=== PATIENT | male | born 1940 | race Caucasian/White ===

== ENCOUNTER 2022-12-30 07:47 | Inpatient (IN) | payer MEDICARE ==
[~2022-12-30] VITALS: Ht 177.8 cm; Wt 73.5 kg
[2022-12-30] MEDS ORDERED: PANTOPRAZOLE 40 MG VIAL ONE (08:29)
[2022-12-30] MEDS ORDERED: IV NS 0.9% 1,000 ML BAG IV ONE ×2 (08:30→10:30)
[2022-12-30] MEDS ORDERED: PANTOPRAZOLE 40 MG VIAL IV ONE (08:30)
[2022-12-30 09:23] LABS: BASOPHILS % (AUTO) 0.1 % (0.0-2.0); EOSINOPHILS % (AUTO) 0.1 % (0.0-6.0); HEMATOCRIT 27 % (39-51); HEMOGLOBIN 8.5 g/dL (13.5-17.5); LYMPHOCYTES # (AUTO) 0.9 K/uL (0.8-4.8); LYMPHOCYTES % (AUTO) 4.4 % (20.0-44.0); MEAN CORPUSCULAR HEMOGLOBIN 30 PG (26.0-33.0); MEAN CORPUSCULAR HGB CONC 32 g/dl (31.0-36.0); MEAN CORPUSCULAR VOLUME 93 fL (80-96); MONOCYTES % (AUTO) 10.2 % (2.0-12.0); NEUTROPHILS # (AUTO) 16.8 K/uL (1.8-8.9); NEUTROPHILS % (AUTO) 85.2 % (43.0-81.0); PLATELET COUNT (AUTO) 157 K/uL (150-450); RED BLOOD CELL COUNT(AUTO) 2.88 MIL/uL (4.5-6.0); WHITE BLOOD COUNT (AUTO) 19.7 K/uL (4.3-11.0)
[2022-12-30 09:30] LABS: INR 1.18 (0.91-1.10); PARTIAL THROMBOPLASTIN TIME 20.9 SEC (24.3-34.3); PROTHROMBIN TIME 12.4 SECS (9.2-11.1)
[2022-12-30 09:38] LABS: ALANINE AMINOTRANSFERASE 18 U/L (12-78); ALBUMIN 3.1 g/dL (3.4-5.0); ALKALINE PHOSPHATASE 35 U/L (46-116); ASPARTATE AMINOTRANSFERASE 10 U/L (15-37); BILIRUBIN,DIRECT 0.2 mg/dL (0.0-0.2); BILIRUBIN,TOTAL 0.7 mg/dL (0.2-1.0); CALCIUM, SERUM 9.5 mg/dL (8.5-10.1); CARBON DIOXIDE 24 mmol/L (21-32); CHLORIDE 106 mmol/L (98-107); CREATININE 1.2 mg/dL (0.6-1.3); GLUCOSE 216 mg/dL (74-106); LIPASE 40 U/L (16-77); POTASSIUM 4.7 mmol/L (3.5-5.1); SODIUM SERUM 138 mmol/L (136-145)
[2022-12-30 09:48] LABS: LACTIC ACID 1.7 mmol/L (0.4-2.0)
[2022-12-30] MEDS ORDERED: METF-440 PO (09:55)
[2022-12-30] MEDS ORDERED: APIX5TAB PO (09:55)
[2022-12-30] MEDS ORDERED: ROSU40TA PO (09:55)
[2022-12-30] MEDS ORDERED: DAPA10TA PO (09:55)
[2022-12-30] MEDS ORDERED: ASPI-1169 PO (09:55)
[2022-12-30] MEDS ORDERED: LATA7.5D EACHEYE (09:55)
[2022-12-30] MEDS ORDERED: TOCI80VI (09:55)
[2022-12-30] MEDS ORDERED: MYCO500T PO (09:55)
[2022-12-30] MEDS ORDERED: PRED5TAB PO (09:55)
[2022-12-30] MEDS ORDERED: TIMO5DRO31 EACHEYE (09:55)
[2022-12-30] MEDS ORDERED: EDARBYCLOR PO (09:55)
[2022-12-30] MEDS ORDERED: AZEL137S7 NS (09:55)
[2022-12-30 09:56] LABS: UREA NITROGEN, BLOOD 84 mg/dL (7-18)
[2022-12-30] MEDS ORDERED: ONDANSETRON HCL/PF 4 MG/2 ML VIAL IVP ONE (11:00)
[2022-12-30] MEDS ORDERED: MORPHINE SULFATE INJ 2 MG/ML DISP.SYRIN IV ONE (11:00)
[2022-12-30 11:30] VITALS: BP 117/55; TEMP 99.1; O2SAT 97
[2022-12-30] MEDS ORDERED: IV NS 0.9% 1,000 ML IV SCH (12:00)
[2022-12-30] MEDS ORDERED: hydrALAZINE HCL IV 20 MG VIAL IV PRN (12:00)
[2022-12-30] MEDS ORDERED: ONDANSETRON HCL/PF 4 MG/2 ML VIAL IVP PRN (12:00)
[2022-12-30] MEDS ORDERED: ACETAMINOPHEN 325 MG TABLET PO PRN (12:00)
[2022-12-30 14:47] LABS: HEMOGLOBIN 7.5 g/dL (13.5-17.5)
[2022-12-30 16:00] VITALS: BP 99/48; TEMP 98.2; O2SAT 98
[2022-12-30] MEDS: MYCOPHENOLATE MOFETIL 250 MG CAPSULE PO SCH (17:00)
[2022-12-30] MEDS: PANTOPRAZOLE 40 MG VIAL IV SCH (17:26)
[2022-12-30] MEDS: MORPHINE SULFATE INJ 2 MG/ML DISP.SYRIN IV PRN (18:33)
[2022-12-30 21:06] LABS: OCCULT BLOOD STOOL POSITIVE (NEGATIVE)
[2022-12-30 21:35] VITALS: BP 108/46; TEMP 98.2; O2SAT 95
[2022-12-30] MEDS ORDERED: predniSONE 5 MG TABLET ONE (22:10)
[2022-12-30] MEDS ORDERED: predniSONE 5 MG TABLET PO ONE (22:30)
[2022-12-31] VITALS (20 sets, daily range): BP systolic 81–133; BP diastolic 45–95; TEMP 97.3–98.6; O2SAT 95–100
[2022-12-31] MEDS: IV NS 0.9% 1,000 ML IV PRN ×2 (05:07→23:54)
[2022-12-31 05:51] LABS: BASOPHILS % (AUTO) 0.1 % (0.0-2.0); HEMATOCRIT 21 % (39-51); LYMPHOCYTES # (AUTO) 1.9 K/uL (0.8-4.8); LYMPHOCYTES % (AUTO) 9.7 % (20.0-44.0); MEAN CORPUSCULAR HEMOGLOBIN 31 PG (26.0-33.0); MEAN CORPUSCULAR HGB CONC 32 g/dl (31.0-36.0); MEAN CORPUSCULAR VOLUME 95 fL (80-96); MONOCYTES # (AUTO) 1.2 K/uL (0.1-1.30); MONOCYTES % (AUTO) 6.1 % (2.0-12.0); NEUTROPHILS # (AUTO) 16.2 K/uL (1.8-8.9); NEUTROPHILS % (AUTO) 84.1 % (43.0-81.0); PLATELET COUNT (AUTO) 121 K/uL (150-450); RED CELL DISTRIBUTION WIDTH 14.4 % (11.5-15.0); WHITE BLOOD COUNT (AUTO) 19.3 K/uL (4.3-11.0)
[2022-12-31 06:00] LABS: ALBUMIN 2.5 g/dL (3.4-5.0); BILIRUBIN,TOTAL 0.9 mg/dL (0.2-1.0); CALCIUM, SERUM 8.1 mg/dL (8.5-10.1); CREATININE 1.2 mg/dL (0.6-1.3); MAGNESIUM 2.1 mg/dL (1.8-2.4); PHOSPHORUS 3.8 mg/dL (2.5-4.9); POTASSIUM 4.3 mmol/L (3.5-5.1); TOTAL PROTEIN, SERUM 4.3 g/dL (6.4-8.2)
[2022-12-31 06:22] LABS: HEMOGLOBIN 6.7 g/dL (13.5-17.5)
[2022-12-31] MEDS: ATORVASTATIN 40 MG TABLET PO SCH (08:29)
[2022-12-31] MEDS: PANTOPRAZOLE 40 MG VIAL IV SCH ×2 (08:29→16:20)
[2022-12-31] MEDS: MYCOPHENOLATE MOFETIL 250 MG CAPSULE PO SCH ×2 (08:29→16:20)
[2022-12-31] MEDS: TIMOLOL 0.25% SOL OPHTH 10 ML BOTTLE EACHEYE SCH (08:45)
[2022-12-31 09:57] LABS: ANISOCYTOSIS 1+; LYMPHOCYTES % (MANUAL) 8 % (16-48); MONOCYTES % (MANUAL) 6 % (0-11.0); NEUTROPHILS % (MANUAL) 86 (42-76); OVALOCYTES 1+; PLATELET ESTIMATE DECREASED
[2022-12-31 12:13] LABS: APPEARANCE,URINE CLEAR (CLEAR); BILIRUBIN,URINE NEGATIVE (NEGATIVE); BLOOD, URINE NEGATIVE Ery/uL (NEGATIVE); COLOR,URINE YELLOW (YELLOW); KETONES,URINE NEGATIVE (NEGATIVE); LEUKOCYTE ESTERASE ,URINE NEGATIVE (NEGATIVE); NITRITE, URINE NEGATIVE (NEGATIVE); PH,URINE 5.5 (5.0-8.0); PROTEIN,URINE NEGATIVE (NEGATIVE); UGLUCOSE 3+ mg/dL (NEGATIVE); UROBILINOGEN,URINE 0.2 EU/dL (0.2)
[2022-12-31 12:44] LABS: HEMOGLOBIN 5.8 g/dL (13.5-17.5)
[2022-12-31] MEDS ORDERED: LORATADINE 10 MG TABLET PO ONE (13:00)
[2022-12-31] MEDS ORDERED: diphenhydrAMINE HCL 50 MG/ML VIAL IV ONE ×2 (13:00)
[2022-12-31] MEDS ORDERED: ACETAMINOPHEN 325 MG TABLET PO ONE (13:00)
[2022-12-31 13:57] LABS: RBC,URINE 0-2 /HPF (0-2)
[2022-12-31 13:58] LABS: ADD URINE CULTURE NO; BACTERIA,URINE Rare /HPF (None Seen); SQUAMOUS EPITHELIAL CELL,UR Rare /HPF (None Seen); WBC,URINE 0-2 /HPF (0-3)
[2022-12-31 15:34] LABS: EOSINOPHIL,URINE None Seen
[2022-12-31 15:55] LABS: CREATININE, URINE 28.5 MG/DL (30.0-125.0); URINE TOTAL PROTEIN 8.1 mg/dL (0-11.9)
[2022-12-31] MEDS ORDERED: LORAZEPAM INJ 2 MG/ML VIAL IV ONE (16:00)
[2022-12-31] MEDS ORDERED: ANESTHESIA TRAY IN PYXIS 1 EA TRAY MC ONE (16:55)
[2022-12-31] MEDS ORDERED: METOCLOPRAMIDE HCL 10 MG/2 ML VIAL ONE (17:50)
[2022-12-31] MEDS ORDERED: EPINEPHRINE (1:10,000) SYRINGE 1 MG/10 ML DISP.SYRIN ONE (18:26)
[2022-12-31] MEDS ORDERED: PANTOPRAZOLE 80 MG in IV NS 0.9% 100 ML IV ONE (19:30)
[2022-12-31 21:12] LABS: HEMOGLOBIN 7.3 g/dL (13.5-17.5)
[2022-12-31] MEDS: PANTOPRAZOLE 80 MG in IV NS 0.9% 500 ML IV PRN (21:13)
[2023-01-01] VITALS (97 sets, daily range): BP systolic 33–145; BP diastolic 18–126; TEMP 96.8–100; O2SAT 90–100
[2023-01-01 04:58] LABS: HEMATOCRIT 22 % (39-51); LYMPHOCYTES # (AUTO) 2.4 K/uL (0.8-4.8); LYMPHOCYTES % (AUTO) 9.2 % (20.0-44.0); MEAN CORPUSCULAR HEMOGLOBIN 31 PG (26.0-33.0); MEAN CORPUSCULAR HGB CONC 33 g/dl (31.0-36.0); MEAN CORPUSCULAR VOLUME 95 fL (80-96); MONOCYTES # (AUTO) 1.2 K/uL (0.1-1.30); MONOCYTES % (AUTO) 4.6 % (2.0-12.0); NEUTROPHILS # (AUTO) 22.4 K/uL (1.8-8.9); NEUTROPHILS % (AUTO) 86.2 % (43.0-81.0); PLATELET COUNT (AUTO) 106 K/uL (150-450); RED BLOOD CELL COUNT(AUTO) 2.28 MIL/uL (4.5-6.0)
[2023-01-01 05:43] LABS: ALANINE AMINOTRANSFERASE 14 U/L (12-78); ALBUMIN 2.1 g/dL (3.4-5.0); ALKALINE PHOSPHATASE 32 U/L (46-116); ASPARTATE AMINOTRANSFERASE 9 U/L (15-37); BILIRUBIN,TOTAL 0.8 mg/dL (0.2-1.0); CALCIUM, SERUM 7.5 mg/dL (8.5-10.1); CARBON DIOXIDE 16 mmol/L (21-32); CHLORIDE 113 mmol/L (98-107); CREATININE 1.5 mg/dL (0.6-1.3); GLUCOSE 324 mg/dL (74-106); MAGNESIUM 1.8 mg/dL (1.8-2.4); PHOSPHORUS 3.4 mg/dL (2.5-4.9); POTASSIUM 4.3 mmol/L (3.5-5.1); SODIUM SERUM 141 mmol/L (136-145); TOTAL PROTEIN, SERUM 3.5 g/dL (6.4-8.2)
[2023-01-01 05:45] LABS: UREA NITROGEN, BLOOD 85 mg/dL (7-18)
[2023-01-01 05:47] LABS: CREATINE KINASE, TOTAL 77 U/L (39-308)
[2023-01-01] MEDS: PANTOPRAZOLE 80 MG in IV NS 0.9% 500 ML IV PRN ×2 (06:03→17:42)
[2023-01-01] MEDS: MORPHINE SULFATE INJ 2 MG/ML DISP.SYRIN IV PRN (07:58)
[2023-01-01 08:09] LABS: BASOPHILS % (AUTO) 0.1 % (0.0-2.0); HEMATOCRIT 22 % (39-51); LYMPHOCYTES # (AUTO) 3.4 K/uL (0.8-4.8); LYMPHOCYTES % (AUTO) 11.1 % (20.0-44.0); MEAN CORPUSCULAR HEMOGLOBIN 30 PG (26.0-33.0); MEAN CORPUSCULAR HGB CONC 30 g/dl (31.0-36.0); MEAN CORPUSCULAR VOLUME 101 fL (80-96); MONOCYTES % (AUTO) 6.6 % (2.0-12.0); NEUTROPHILS % (AUTO) 82.2 % (43.0-81.0); PLATELET COUNT (AUTO) 97 K/uL (150-450); RED CELL DISTRIBUTION WIDTH 15.2 % (11.5-15.0)
[2023-01-01 08:15] LABS: HEMOGLOBIN 6.7 g/dL (13.5-17.5); WHITE BLOOD COUNT (AUTO) 30.4 K/uL (4.3-11.0)
[2023-01-01] MEDS ORDERED: HYDROCHLOROTHIAZIDE 25 MG TABLET PO SCH (09:00)
[2023-01-01] MEDS: MYCOPHENOLATE MOFETIL 250 MG CAPSULE PO SCH ×2 (09:00→17:00)
[2023-01-01] MEDS ORDERED: LOSARTAN POTASSIUM 25 MG TABLET PO SCH (09:00)
[2023-01-01] MEDS ORDERED: predniSONE 5 MG TABLET PO SCH (09:00)
[2023-01-01] MEDS: ATORVASTATIN 40 MG TABLET PO SCH (09:00)
[2023-01-01] MEDS: TIMOLOL 0.25% SOL OPHTH 10 ML BOTTLE EACHEYE SCH (10:00)
[2023-01-01] MEDS: NOREPINEPHRINE 8 MG in IV NS 0.9% 242 ML IV PRN (10:21)
[2023-01-01] MEDS: IV NS 0.9% 1,000 ML IV PRN ×2 (10:30→22:41)
[2023-01-01] MEDS ORDERED: PROTHROMBIN COMPLEX CONCENTR IV ONE (11:00)
[2023-01-01] MEDS ORDERED: WATER FOR INJECTION STERILE IV ONE (11:00)
[2023-01-01] MEDS ORDERED: ANESTHESIA TRAY IN PYXIS 1 EA TRAY MC ONE ×2 (11:51→14:24)
[2023-01-01] MEDS ORDERED: VASOPRESSIN INJ 20 UNIT/ML VIAL ONE (11:52)
[2023-01-01] MEDS ORDERED: MIDAZOLAM HCL 2 MG/2ML VIAL ONE (11:53)
[2023-01-01] MEDS ORDERED: ROCURONIUM BROMIDE 50 MG/5 ML ONE (11:56)
[2023-01-01] MEDS ORDERED: EPINEPHRINE (1:1000) 1 MG/ML AMPUL ONE (11:56)
[2023-01-01 11:58] LABS: BASOPHILS # (AUTO) 0.1 K/uL (0.0-0.2); BASOPHILS % (AUTO) 0.2 % (0.0-2.0); EOSINOPHILS # (AUTO) 0.2 K/uL (0.0-0.7); EOSINOPHILS % (AUTO) 0.5 % (0.0-6.0); HEMATOCRIT 36 % (39-51); HEMOGLOBIN 10.3 g/dL (13.5-17.5); LYMPHOCYTES # (AUTO) 5.7 K/uL (0.8-4.8); LYMPHOCYTES % (AUTO) 11.4 % (20.0-44.0); MEAN CORPUSCULAR HEMOGLOBIN 31 PG (26.0-33.0); MEAN CORPUSCULAR HGB CONC 29 g/dl (31.0-36.0); MEAN CORPUSCULAR VOLUME 107 fL (80-96); MONOCYTES # (AUTO) 4.2 K/uL (0.1-1.30); MONOCYTES % (AUTO) 8.4 % (2.0-12.0); NEUTROPHILS # (AUTO) 39.6 K/uL (1.8-8.9); NEUTROPHILS % (AUTO) 79.5 % (43.0-81.0); PLATELET COUNT (AUTO) 85 K/uL (150-450); RED BLOOD CELL COUNT(AUTO) 3.35 MIL/uL (4.5-6.0); RED CELL DISTRIBUTION WIDTH 15.2 % (11.5-15.0)
[2023-01-01] MEDS ORDERED: PHENYLEPHRINE 50 MG in IV NS 0.9% 245 ML IV PRN (12:00)
[2023-01-01] MEDS: MEROPENEM 1 G in IV NS 0.9% 100 ML IV SCH (12:00)
[2023-01-01] MEDS ORDERED: SODIUM BICARBONATE SYR 50 MEQ/50 ML DISP.SYRIN IV ONE (12:00)
[2023-01-01 12:01] LABS: WHITE BLOOD COUNT (AUTO) 49.8 K/uL (4.3-11.0)
[2023-01-01] MEDS ORDERED: AZTREONAM 1 G in IV NS 0.9% 100 ML IV SCH (13:00)
[2023-01-01 13:07] LABS: ABG BASE EXCESS -22.7 mmol/L; ABG OXYGEN SATURATION 99.1 % (92.0-98.5); ABG PCO2 28.2 mmHg (35.0-45.0); ABG PH 7.014 (7.350-7.450); ABG PO2 395.1 mmHg (75.0-100.0); ABG TOTAL HEMOGLOBIN 10.9 G/dL (13.5-18.0); AaDO2 289.7 mmHg; COHb 0.3 % (0.5-1.5); MetHb 0.6 % (0.0-1.5); O2Hb 98.2 % (94.0-97.0); PEEP,BG 5 cm H2O; SITE, ABG Right Radial; VT, ABG 500 mL
[2023-01-01 13:08] LABS: ANISOCYTOSIS 1+; BASOPHILS % (MANUAL) 0 % (0.0-2.0); EOSINOPHILS % (MANUAL) 0 % (0-4); LYMPHOCYTES % (MANUAL) 10 % (16-48); MONOCYTES % (MANUAL) 6 % (0-11.0); NEUTROPHILS % (MANUAL) 84 (42-76); PLATELET ESTIMATE DECREASED
[2023-01-01] MEDS ORDERED: SUCCINYLCHOLINE CHLORIDE 20 MG/ML VIAL IV ONE (13:20)
[2023-01-01] MEDS ORDERED: ETOMIDATE 2 MG/ML VIAL IV ONE (13:20)
[2023-01-01] MEDS: VASOPRESSIN INJ 40 UNIT in IV NS 0.9% 38 ML IV PRN (15:09)
[2023-01-01] MEDS: VANCOMYCIN 1 GM in IV D5W 250 ML IV SCH (15:14)
[2023-01-01] MEDS: PROPOFOL 100 ML IV PRN ×2 (16:40→22:00)
[2023-01-01 16:52] LABS: RHEUMATOID FACTOR SCREEN NEGATIVE (NEGATIVE)
[2023-01-01] MEDS: SUCRALFATE 1 G/10 ML UDC GT SCH (18:00)
[2023-01-01 18:09] LABS: BASOPHILS # (AUTO) 0.1 K/uL (0.0-0.2); BASOPHILS % (AUTO) 0.5 % (0.0-2.0); EOSINOPHILS % (AUTO) 0.2 % (0.0-6.0); HEMATOCRIT 25 % (39-51); HEMOGLOBIN 8.2 g/dL (13.5-17.5); LYMPHOCYTES # (AUTO) 1.4 K/uL (0.8-4.8); LYMPHOCYTES % (AUTO) 6.4 % (20.0-44.0); MEAN CORPUSCULAR HEMOGLOBIN 32 PG (26.0-33.0); MEAN CORPUSCULAR HGB CONC 34 g/dl (31.0-36.0); MEAN CORPUSCULAR VOLUME 94 fL (80-96); MONOCYTES % (AUTO) 4.3 % (2.0-12.0); NEUTROPHILS # (AUTO) 19.7 K/uL (1.8-8.9); NEUTROPHILS % (AUTO) 88.6 % (43.0-81.0); PLATELET COUNT (AUTO) 52 K/uL (150-450); RED CELL DISTRIBUTION WIDTH 13.4 % (11.5-15.0); WHITE BLOOD COUNT (AUTO) 22.3 K/uL (4.3-11.0)
[2023-01-01] MEDS: PHENYLEPHRINE 100 MG in IV NS 0.9% 240 ML IV PRN (20:16)
[2023-01-01 20:32] LABS: BAND % (MANUAL) 14 % (0.0-5.0); EOSINOPHILS % (MANUAL) 1 % (0-4); LYMPHOCYTES % (MANUAL) 16 % (16-48); MONOCYTES % (MANUAL) 1 % (0-11.0); MYELOCYTES % 2 % (0-0); NEUTROPHILS % (MANUAL) 66 (42-76)
[2023-01-01 20:34] LABS: ANISOCYTOSIS 2+; PLATELET ESTIMATE DECRE
[2023-01-01 23:27] LABS: HEMOGLOBIN 7.4 g/dL (13.5-17.5)
[2023-01-02] VITALS (85 sets, daily range): BP systolic 35–170; BP diastolic 14–134; TEMP 95.3–100; O2SAT 92–100
[2023-01-02] MEDS: MEROPENEM 1 G in IV NS 0.9% 100 ML IV SCH ×2 (00:22→11:01)
[2023-01-02 01:09] LABS: MEAN CORPUSCULAR HEMOGLOBIN 30 PG (26.0-33.0); MEAN CORPUSCULAR VOLUME 101 fL (80-96)
[2023-01-02 01:20] LABS: BASOPHILS % (AUTO) 0.1 % (0.0-2.0); EOSINOPHILS # (AUTO) 0.1 K/uL (0.0-0.7); EOSINOPHILS % (AUTO) 0.1 % (0.0-6.0); HEMATOCRIT 26 % (39-51); HEMOGLOBIN 7.8 g/dL (13.5-17.5); LYMPHOCYTES # (AUTO) 2.8 K/uL (0.8-4.8); LYMPHOCYTES % (AUTO) 6.9 % (20.0-44.0); MEAN CORPUSCULAR HGB CONC 30 g/dl (31.0-36.0); MONOCYTES # (AUTO) 4.2 K/uL (0.1-1.30); MONOCYTES % (AUTO) 10.4 % (2.0-12.0); NEUTROPHILS # (AUTO) 33.5 K/uL (1.8-8.9); NEUTROPHILS % (AUTO) 82.5 % (43.0-81.0); PLATELET COUNT (AUTO) 56 K/uL (150-450); RED BLOOD CELL COUNT(AUTO) 2.56 MIL/uL (4.5-6.0); RED CELL DISTRIBUTION WIDTH 15.2 % (11.5-15.0)
[2023-01-02 01:38] LABS: WHITE BLOOD COUNT (AUTO) 40.7 K/uL (4.3-11.0)
[2023-01-02] MEDS: PHENYLEPHRINE 100 MG in IV NS 0.9% 240 ML IV PRN ×4 (01:52→22:05)
[2023-01-02 02:08] LABS: ABG OXYGEN SATURATION 99.2 % (92.0-98.5); ABG PCO2 25.5 mmHg (35.0-45.0); ABG PH 7.244 (7.350-7.450); ABG PO2 361.8 mmHg (75.0-100.0); ABG TOTAL HEMOGLOBIN 10.7 G/dL (13.5-18.0); AaDO2 325.7 mmHg; COHb 0.1 % (0.5-1.5); MetHb 0.2 % (0.0-1.5); O2Hb 98.9 % (94.0-97.0); SITE, ABG Right Radial
[2023-01-02] MEDS: PROPOFOL 100 ML IV PRN (03:14)
[2023-01-02] MEDS: PANTOPRAZOLE 80 MG in IV NS 0.9% 500 ML IV PRN ×3 (03:16→23:50)
[2023-01-02 03:29] LABS: BAND % (MANUAL) 3 % (0.0-5.0); BASOPHILS % (MANUAL) 0 % (0.0-2.0); EOSINOPHILS % (MANUAL) 0 % (0-4); LYMPHOCYTES % (MANUAL) 5 % (16-48); MONOCYTES % (MANUAL) 8 % (0-11.0); NEUTROPHILS % (MANUAL) 84 (42-76)
[2023-01-02 03:30] LABS: PLATELET ESTIMATE DECREASED
[2023-01-02 03:31] LABS: ANISOCYTOSIS 1+
[2023-01-02] MEDS: SUCRALFATE 1 G/10 ML UDC GT SCH ×5 (05:36→23:59)
[2023-01-02 07:06] LABS: PTH, INTACT 55 pg/mL (15-65)
[2023-01-02 07:15] LABS: BASOPHILS # (AUTO) 0.1 K/uL (0.0-0.2); BASOPHILS % (AUTO) 0.3 % (0.0-2.0); EOSINOPHILS # (AUTO) 0.1 K/uL (0.0-0.7); EOSINOPHILS % (AUTO) 0.2 % (0.0-6.0); HEMATOCRIT 26 % (39-51); HEMOGLOBIN 7.9 g/dL (13.5-17.5); LYMPHOCYTES # (AUTO) 2.4 K/uL (0.8-4.8); LYMPHOCYTES % (AUTO) 8.8 % (20.0-44.0); MEAN CORPUSCULAR HEMOGLOBIN 32 PG (26.0-33.0); MEAN CORPUSCULAR HGB CONC 31 g/dl (31.0-36.0); MEAN CORPUSCULAR VOLUME 104 fL (80-96); MONOCYTES # (AUTO) 0.6 K/uL (0.1-1.30); MONOCYTES % (AUTO) 2.2 % (2.0-12.0); NEUTROPHILS # (AUTO) 24.2 K/uL (1.8-8.9); NEUTROPHILS % (AUTO) 88.5 % (43.0-81.0); RED BLOOD CELL COUNT(AUTO) 2.47 MIL/uL (4.5-6.0); RED CELL DISTRIBUTION WIDTH 15.5 % (11.5-15.0); WHITE BLOOD COUNT (AUTO) 27.4 K/uL (4.3-11.0)
[2023-01-02 07:24] LABS: PLATELET COUNT (AUTO) 43 K/uL (150-450)
[2023-01-02 08:07] LABS: FOLIC ACID > 20.0 ng/mL (>3.0); IMMUNOGLOBULIN A, SERUM 73 mg/dL (61-437); IMMUNOGLOBULIN G, SERUM 407 mg/dL (603-1613); IMMUNOGLOBULIN M, SERUM 48 mg/dL (15-143)
[2023-01-02 08:16] LABS: FERRITIN 4899 ng/mL (8-388)
[2023-01-02] MEDS: NOREPINEPHRINE 8 MG in IV NS 0.9% 242 ML IV PRN ×6 (08:26→23:50)
[2023-01-02 08:46] LABS: IRON, SERUM 90 ug/dl (50-175); TOTAL IRON BINDING CAPACITY 127 ug/dl (250-450)
[2023-01-02] MEDS: TIMOLOL 0.25% SOL OPHTH 10 ML BOTTLE EACHEYE SCH (08:52)
[2023-01-02] MEDS: MYCOPHENOLATE MOFETIL 250 MG CAPSULE PO SCH ×2 (08:52→17:00)
[2023-01-02] MEDS: ATORVASTATIN 40 MG TABLET PO SCH (08:52)
[2023-01-02] MEDS: HYDROCORTISONE SOD SUCCINATE 100 MG/2 ML VIAL IV SCH ×3 (09:24→21:10)
[2023-01-02] MEDS ORDERED: IV NS 0.9% 500 ML IV ONE (09:30)
[2023-01-02 09:45] LABS: ALANINE AMINOTRANSFERASE 1936 U/L (12-78); ALKALINE PHOSPHATASE 128 U/L (46-116); ASPARTATE AMINOTRANSFERASE > 1000 U/L (15-37); CALCIUM, SERUM 6.2 mg/dL (8.5-10.1); CHLORIDE 114 mmol/L (98-107); CREATININE 4.2 mg/dL (0.6-1.3); GLUCOSE 211 mg/dL (74-106); SODIUM SERUM 142 mmol/L (136-145); TOTAL PROTEIN, SERUM 2.5 g/dL (6.4-8.2)
[2023-01-02] MEDS ORDERED: IV NS 0.9% 1,000 ML IV ONE (10:00)
[2023-01-02] MEDS ORDERED: SODIUM BICARBONATE SYR 50 MEQ/50 ML DISP.SYRIN IV ONE ×4 (10:00→16:30)
[2023-01-02 10:06] LABS: *ANA ANTI-CENTROMERE B AB <0.2 AI (0.0-0.9); *ANA ANTI-DNA(DS) AB, QN <1 IU/mL (0-9); *ANA ANTI-JO-1 <0.2 AI (0.0-0.9); *ANA ANTICHROMATIN ANTIBODY <0.2 AI (0.0-0.9); *ANA RNP ANTIBODIES <0.2 AI (0.0-0.9); *ANA SJOGREN'S ANTI-SS-A <0.2 AI (0.0-0.9); *ANA SJOGREN'S ANTI-SS-B <0.2 AI (0.0-0.9); *ANAANTI-SCLERODERMA-70 AB <0.2 AI (0.0-0.9); *ANASMITH AB <0.2 AI (0.0-0.9)
[2023-01-02 10:09] LABS: CARBON DIOXIDE 6 mmol/L (21-32)
[2023-01-02 10:10] LABS: ALBUMIN 1.2 g/dL (3.4-5.0); UREA NITROGEN, BLOOD 110 mg/dL (7-18)
[2023-01-02 10:16] LABS: POTASSIUM 7.9 mmol/L (3.5-5.1)
[2023-01-02] MEDS ORDERED: DEXTROSE 50%-WATER 50 ML DISP.SYRIN IVP ONE ×2 (10:30→14:30)
[2023-01-02] MEDS ORDERED: INSULIN REGULAR, HUMAN 100 UNIT/ML 3 ML VIAL IV ONE (10:30)
[2023-01-02] MEDS ORDERED: Calcium Gluconate 1GM/10ML 4.65 MEQ in IV NS 0.9% 100 ML IV ONE (10:30)
[2023-01-02] MEDS ORDERED: Calcium Gluconate 0.465 MEQ/ML VIAL IV ONE (10:30)
[2023-01-02 11:20] LABS: D-DIMER 1.37 mg/L(FEU (0.17-0.50); INR 1.78 (0.91-1.10); PARTIAL THROMBOPLASTIN TIME 57.8 SEC (24.3-34.3); PROTHROMBIN TIME 18.2 SECS (9.2-11.1)
[2023-01-02] MEDS ORDERED: ALBUMIN 25% 25 GM in PREMIX 1 EA IV PRN (11:30)
[2023-01-02] MEDS ORDERED: ACETAMINOPHEN 325 MG TABLET PO ONE (11:30)
[2023-01-02] MEDS ORDERED: diphenhydrAMINE HCL 50 MG/ML VIAL IV ONE (11:30)
[2023-01-02] MEDS ORDERED: SODIUM BICARBONATE SYR 150 MEQ in IV D5/0.45 NACL 1,000 ML IV SCH (12:30)
[2023-01-02] MEDS: VANCOMYCIN 1 GM in IV D5W 250 ML IV SCH (13:05)
[2023-01-02] MEDS ORDERED: DEXTROSE 50%-WATER 50 ML DISP.SYRIN IVP PRN (14:30)
[2023-01-02] MEDS ORDERED: DEXTROSE 50%-WATER 50 ML DISP.SYRIN ONE ×2 (14:53→16:47)
[2023-01-02] MEDS: VASOPRESSIN INJ 40 UNIT in IV NS 0.9% 38 ML IV PRN (14:53)
[2023-01-02 15:16] LABS: BASOPHILS # (AUTO) 0.2 K/uL (0.0-0.2); BASOPHILS % (AUTO) 1.1 % (0.0-2.0); EOSINOPHILS # (AUTO) 1.2 K/uL (0.0-0.7); EOSINOPHILS % (AUTO) 6.2 % (0.0-6.0); LYMPHOCYTES # (AUTO) 2.1 K/uL (0.8-4.8); LYMPHOCYTES % (AUTO) 11.1 % (20.0-44.0); MEAN CORPUSCULAR HEMOGLOBIN 32 PG (26.0-33.0); MEAN CORPUSCULAR HGB CONC 31 g/dl (31.0-36.0); MEAN CORPUSCULAR VOLUME 102 fL (80-96); MONOCYTES # (AUTO) 0.4 K/uL (0.1-1.30); MONOCYTES % (AUTO) 2.3 % (2.0-12.0); NEUTROPHILS # (AUTO) 15.3 K/uL (1.8-8.9); NEUTROPHILS % (AUTO) 79.3 % (43.0-81.0); RED CELL DISTRIBUTION WIDTH 16.1 % (11.5-15.0); WHITE BLOOD COUNT (AUTO) 19.3 K/uL (4.3-11.0)
[2023-01-02 15:38] LABS: CARBON DIOXIDE 11 mmol/L (21-32); CHLORIDE 113 mmol/L (98-107); CREATININE 3.3 mg/dL (0.6-1.3); GLUCOSE 235 mg/dL (74-106); POTASSIUM 5.8 mmol/L (3.5-5.1); SODIUM SERUM 147 mmol/L (136-145)
[2023-01-02 15:55] LABS: UREA NITROGEN, BLOOD 85 mg/dL (7-18)
[2023-01-02 16:15] LABS: RED BLOOD CELL COUNT(AUTO) 1.94 MIL/uL (4.5-6.0)
[2023-01-02 16:17] LABS: LACTIC ACID 16.6 mmol/L (0.4-2.0)
[2023-01-02 16:18] LABS: HEMATOCRIT 20 % (39-51); HEMOGLOBIN 6.2 g/dL (13.5-17.5); PLATELET COUNT (AUTO) 48 K/uL (150-450)
[2023-01-02] MEDS ORDERED: NOREPINEPHRINE 32 MG in IV NS 0.9% 218 ML IV PRN (17:00)
[2023-01-02 18:37] LABS: BILIRUBIN,DIRECT 0.3 mg/dL (0.0-0.2)
[2023-01-02] MEDS: DEXTROSE IV SCH (19:20)
[2023-01-02] MEDS: SODIUM BICARBONATE IV SCH (19:20)
[2023-01-02 19:35] LABS: BAND % (MANUAL) 4 % (0.0-5.0); LYMPHOCYTES % (MANUAL) 8 % (16-48); METAMYELOCYTES % 18 % (0-0); MYELOCYTES % 30 % (0-0); NEUTROPHILS % (MANUAL) 29 (42-76); PLATELET ESTIMATE DECREASED; PROMYELOCYTES % 11 % (0-0)
[2023-01-02 19:37] LABS: ANISOCYTOSIS 2+; OVALOCYTES RARE
[2023-01-02] MEDS ORDERED: SODIUM BICARBONATE SYR 50 MEQ/50 ML DISP.SYRIN IV STA (20:57)
[2023-01-02 23:28] LABS: HEMOGLOBIN 4.5 g/dL (13.5-17.5)
[2023-01-02] MEDS ORDERED: BLOOD SUGAR DIAGNOSTIC 1 EACH STRIP IN PRN (23:30)
[2023-01-03] VITALS (15 sets, daily range): BP systolic 100–146; BP diastolic 48–110; TEMP 95–95.7; O2SAT 97–100
[2023-01-03] MEDS: MEROPENEM 1 G in IV NS 0.9% 100 ML IV SCH (00:28)
[2023-01-03] MEDS: NOREPINEPHRINE 8 MG in IV NS 0.9% 242 ML IV PRN ×2 (01:58→04:00)
[2023-01-03] MEDS: DEXTROSE IV SCH (04:04)
[2023-01-03] MEDS: SODIUM BICARBONATE IV SCH (04:04)
[2023-01-03 06:06] LABS: HEPATITIS B SURFACE AB Reactive (.)
[2023-01-05 10:07] LABS: *SPE A/G RATIO 2.2 (0.7-1.7); *SPE ALBUMIN 2.2 g/dL (2.9-4.4); *SPE ALPHA-1-GLOBULIN 0.2 g/dL (0.0-0.4); *SPE ALPHA-2-GLOBULIN 0.3 g/dL (0.4-1.0); *SPE BETA GLOBULIN 0.4 g/dL (0.7-1.3); *SPE M-SPIKE Not Observed g/dL (Not Observed); *SPE PROTEIN TOTAL 3.2 g/dL (6.0-8.5); *SPEGAMMA GLOBULIN 0.2 g/dL (0.4-1.8)
[2023-01-05 13:25] LABS: THYROID STIMULATING HORMONE 3.444 uIU/mL (0.358-3.74)
== END 2023-01-03 06:04 | DRG 871 ==
LOC: ER 07:50 → TELE 12:03 → ICU 12-31 19:44
PROVIDERS: ADMIT Internal Medicine; ATTEND Internal Medicine
PROC: 30233N1 Transfusion of Nonautologous Red Blood Cells into Peripheral Vein, Percutaneous Approach (ICD-10-PCS; 2022-12-30)
PROC: 0W3P8ZZ Control Bleeding in Gastrointestinal Tract, Via Natural or Artificial Opening Endoscopic (ICD-10-PCS; 2022-12-31)
PROC: 5A1945Z Respiratory Ventilation, 24-96 Consecutive Hours (ICD-10-PCS; principal; 2023-01-01)
PROC: 0BH17EZ Insertion of Endotracheal Airway into Trachea, Via Natural or Artificial Opening (ICD-10-PCS; 2023-01-01)
PROC: 30233K1 Transfusion of Nonautologous Frozen Plasma into Peripheral Vein, Percutaneous Approach (ICD-10-PCS; 2023-01-01)
PROC: 02HV33Z Insertion of Infusion Device into Superior Vena Cava, Percutaneous Approach (ICD-10-PCS; 2023-01-01)
PROC: B548ZZA Ultrasonography of Superior Vena Cava, Guidance (ICD-10-PCS; 2023-01-01)
PROC: 0DJ08ZZ Inspection of Upper Intestinal Tract, Via Natural or Artificial Opening Endoscopic (ICD-10-PCS; 2023-01-01)
PROC: 30233M1 Transfusion of Nonautologous Plasma Cryoprecipitate into Peripheral Vein, Percutaneous Approach (ICD-10-PCS; 2023-01-02)
PROC: 5A1D70Z Performance of Urinary Filtration, Intermittent, Less than 6 Hours Per Day (ICD-10-PCS; 2023-01-02)
PROC: 06HY33Z Insertion of Infusion Device into Lower Vein, Percutaneous Approach (ICD-10-PCS; 2023-01-02)
DX: A41.9 Sepsis, unspecified organism (principal); J96.01 Acute respiratory failure with hypoxia; K26.4 Chronic or unspecified duodenal ulcer with hemorrhage; K72.00 Acute and subacute hepatic failure without coma; N17.0 Acute kidney failure with tubular necrosis; R65.21 Severe sepsis with septic shock; D61.818 Other pancytopenia; D62 Acute posthemorrhagic anemia; J84.9 Interstitial pulmonary disease, unspecified; E27.40 Unspecified adrenocortical insufficiency; D84.821 Immunodeficiency due to drugs; D68.9 Coagulation defect, unspecified; G93.40 Encephalopathy, unspecified; Z86.711 Personal history of pulmonary embolism; Z66 Do not resuscitate; K29.70 Gastritis, unspecified, without bleeding; K57.30 Diverticulosis of large intestine without perforation or abscess without bleeding; Z79.82 Long term (current) use of aspirin; Z88.1 Allergy status to other antibiotic agents; Z99.2 Dependence on renal dialysis; Z79.01 Long term (current) use of anticoagulants; Z79.899 Other long term (current) drug therapy; Z86.718 Personal history of other venous thrombosis and embolism; M35.3 Polymyalgia rheumatica; E78.5 Hyperlipidemia, unspecified; D69.6 Thrombocytopenia, unspecified; E88.09 Other disorders of plasma-protein metabolism, not elsewhere classified; M89.8X9 Other specified disorders of bone, unspecified site; N28.1 Cyst of kidney, acquired; R57.1 Hypovolemic shock; E86.9 Volume depletion, unspecified; E87.5 Hyperkalemia; K59.00 Constipation, unspecified; Z79.624 Long term (current) use of inhibitors of nucleotide synthesis; Z79.84 Long term (current) use of oral hypoglycemic drugs
CPT/HCPCS: 31720; 36415; 36569; 36600; 71045-TC; 74018; 76770-TC; 80048-TC; 80053-TC; 80076-TC; 81001; 82248-TC; 82272-TC; 82550-TC; 82570-TC; 82607-TC; 82728-TC; 82784; 82962-TC; 83540-TC; 83605-TC; 83690-TC; 83735-TC; 83970; 84100-TC; 84155; 84165; 84300-TC; 84443-TC; 84478-TC; 84484-TC; 85025-TC; 85027-TC; 85396; 85730-TC; 86225; 86235; 86334; 86431-TC; 86706; 86803; 86850-TC; 87040-TC; 87086-TC; 87340; 93307-TC; 93970-TC; 94003-TC; 94799-TC; A4216; A4223; C1751; C9113; G0378; J0171; J0330; J0610; J1200; J1720; J1815; J2060; J2185; J2250; J2270; J2704; J2765; J3370; J3490; J7030; J7040; J7050; J7060; J7168; J7512; J7517; P9012; P9016; P9017; P9047